=== PATIENT | female | born 1985 ===

== ENCOUNTER 2017-01-23 18:53 | Emergency (ER) | payer OTHER ==
--- NOTE | ~2017-01-23 | EKG ---
PATIENT: CARMEN PABON UNIT #: [id number] Ventricular Rate: 91 BPM Atrial Rate: 91 BPM P-R Interval: 108 ms QRS Duration: 84 ms Q-T Interval: 372 ms QTC Calculation(Bezet): 457 ms P [place]: 47 degrees Calculated R [place]: 40 degrees Calculated T [place]: 39 degrees Diagnosis Line: Sinus rhythm with sinus arrhythmia with short MA Diagnosis Line: Otherwise normal ECG Diagnosis Line: When compared with ECG of 23-JAN-2017 19:01, Diagnosis Line: (unconfirmed) Diagnosis Line: No significant change was found Diagnosis Line: Confirmed by BHAVANI FRANK MD ([id number]) on Diagnosis Line: 01/23/2017 10:25:32 PM INTERPRETING MD: PATRICK
--- NOTE | ~2017-01-23 | CR63 ---
[facility] A Service of [facility] RADIOLOGY TEXT RESULTS PATIENT: CARMEN PABON LOCATION: [facility] : 81 UNIT #: [id number] AGE: [address]: Romaine, ER Doctor SEX: F ORDER DR: [id number] [facility] [address] [place], [place] [address] [id number] MR#: [id number] Acc #: [id number] NAME: CARMEN PABON : 1985 SEX: F STUDY DATE/TIME: 01/23/2017 20:20 UNIT: ANGIE ROOM: STUDY DESCRIPTION: CR Chest 2 View Attending Physician: Er Physicians Ordering Physician: Lencho Gerardo D.O. Primary Care Physician: No Primary Care Physician MEDICAL IMAGING REPORT This report is preliminary unless electronic signature is present EXAM Chest, 2 views, dated 01/23/17. COMPARISON None. HISTORY Chest pain, shortness of air for 2 days. FINDINGS Two views of the chest were obtained. PA and lateral examination of the chest upright shows a good expansion of the parenchyma with a normal distribution of the pulmonary vascularity. There is no indication of congestion, effusion, infiltrate, tumor, or nodular density. The pleural reflections and diaphragmatic contours are normal. The cardiac silhouette and mediastinal anatomy is within normal limits. IMPRESSION Normal chest. Dictated by... Jaspal Esposito M.D. THIS IS AN ELECTRONICALLY VERIFIED REPORT Jaspal Esposito M.D. at 01/26/2017 3:33 PM CPR/pc TD: 01/24/2017 10:22 JOB #: [id number] MEDICAL IMAGING REPORT Page 1 of 1 COPY
--- NOTE | ~2017-01-23 | EKG ---
PATIENT: CARMEN PABON UNIT #: [id number] Ventricular Rate: 94 BPM Atrial Rate: 94 BPM P-R Interval: 114 ms QRS Duration: 80 ms Q-T Interval: 348 ms QTC Calculation(Bezet): 435 ms P [place]: 47 degrees Calculated R [place]: 40 degrees Calculated T [place]: 35 degrees Diagnosis Line: Normal sinus rhythm Diagnosis Line: Normal ECG Diagnosis Line: No previous ECGs available Diagnosis Line: Confirmed by BHAVANI FRANK MD ([id number]) on Diagnosis Line: 01/23/2017 10:24:23 PM INTERPRETING MD: PATRICK
[2017-01-23 21:28] LABS: BASOPHIL% 0.4 % (0-2.5); DIFF IND NO; EOSINOPHIL# 0.2 X10e3 (0-0.7); HEMATOCRIT 41.5 % (35.0-45.0); HEMOGLOBIN 13.9 gm/dL (12.0-16.0); LYMPHOCYTE% 30.7 % (17.0-45.0); MEAN CELL VOLUME 95.5 FL (83-96); MEAN CORPUSCULAR HGB CONC 33.5 g/dL (30-36); MEAN PLATELET VOLUME 8.4 FL (6.5-11.5); MONOCYTE# 0.8 X10e3 (0-1.0); MONOCYTE% 8.3 % (3.0-12.0); NEUTROPHIL# 5.8 X10e3 (1.5-7.1); NEUTROPHIL% 58.6 % (40-75); PLATELET COUNT 254 X10e3 (140-420); RED BLOOD COUNT 4.34 X10e (3.90-5.30); RED CELL DISTRIBUTION WIDTH 11.7 % (11.0-15.5); WHITE BLOOD COUNT 9.9 X10e3 (4.0-10.5)
[2017-01-23 21:42] LABS: INR 0.9; PARTIAL THROMBOPLASTIN TIME 29.6 SECONDS (23.5-31.3)
[2017-01-23 21:57] LABS: ALBUMIN SERUM 4.2 g/dL (3.5-5.0); BILIRUBIN,TOTAL 0.6 mg/dL (0.2-2.0); BUN/CREATININE RATIO 21.42; CALCIUM SERUM 9.5 mg/dL (8.4-10.2); CREATININE SERUM 0.7 mg/dL (0.6-1.4); GLOM FILT RATE Estimated 113.8 mL/min (>60); PROTEIN TOTAL SERUM 7.9 g/dL (6.0-8.3)
[2017-01-23 21:58] LABS: BILIRUBIN, DIRECT 0.1 mg/dL (0.0-0.2); BILIRUBIN,INDIRECT 0.5 mg/dL (0.0-0.9)
== END 2017-01-23 21:30 | disposition left against medical advice (07) ==
LOC: CED 18:53
PROVIDERS: Emergency Medicine
DX: Z53.21 Procedure and treatment not carried out due to patient leaving prior to being seen by health care provider (principal)
CPT/HCPCS: 71020; 80048; 80076; 85025; 85610; 85730; 93005